=== PATIENT | male | born 1985 | race Caucasian/White ===

== ENCOUNTER 2016-10-10 14:15 | Emergency (ER) | payer MEDICAID ==
[~2016-10-10] VITALS: Ht 177.8 cm; Wt 158.8 kg
[2016-10-10 14:15] VITALS: BP_SYST 133
[2016-10-10 15:42] VITALS: BP_SYST 124
== END 2016-10-10 15:38 | disposition home or self-care (01) ==
LOC: SED 14:15
DX: Z76.0 Encounter for issue of repeat prescription (principal); E11.9 Type 2 diabetes mellitus without complications; I10 Essential (primary) hypertension; E78.00 Pure hypercholesterolemia, unspecified
CPT/HCPCS: 99283